=== PATIENT | male | born 1940 | race Caucasian/White ===

== ENCOUNTER 2022-08-21 13:46 | Outpatient (CLI) | payer MEDICARE | END 2022-08-21 13:47 | disposition home or self-care (01) | LOC: CSHMRI 13:46 | PROVIDERS: ATTEND Internal Medicine Medical Oncology | DX: C79.9 Secondary malignant neoplasm of unspecified site (principal); R93.7 Abnormal findings on diagnostic imaging of other parts of musculoskeletal system; M51.44 Schmorl's nodes, thoracic region; M51.34 Other intervertebral disc degeneration, thoracic region | CPT/HCPCS: 72157 ==

== ENCOUNTER 2025-08-11 10:27 | Outpatient (CLI) | payer MEDICARE ==
[2025-08-11] MEDS ORDERED: Iopamidol 300 61% 100 ML VIAL FS ONE (10:41)
== END 2025-08-11 10:28 | disposition home or self-care (01) ==
LOC: CSHCT 10:27
PROVIDERS: ATTEND Internal Medicine
DX: C43.4 Malignant melanoma of scalp and neck (principal); R94.4 Abnormal results of kidney function studies; R91.8 Other nonspecific abnormal finding of lung field; J98.4 Other disorders of lung; N20.0 Calculus of kidney; N28.1 Cyst of kidney, acquired; K80.20 Calculus of gallbladder without cholecystitis without obstruction
CPT/HCPCS: 71260; 74177; Q9967